=== PATIENT | female | born 1975 | race Hispanic/Latino ===

== ENCOUNTER 2017-08-11 07:28 | Outpatient (CLI) | payer BC | END 2017-08-11 07:29 | disposition home or self-care (01) | LOC: BICULT 07:28 | PROVIDERS: ATTEND Nurse Practitioner Women's Health | DX: R10.2 Pelvic and perineal pain (principal); D25.9 Leiomyoma of uterus, unspecified; N83.292 Other ovarian cyst, left side | CPT/HCPCS: 76856 ==

== ENCOUNTER 2017-10-06 10:02 | Outpatient (CLI) | payer BC | END 2017-10-06 10:03 | disposition home or self-care (01) | LOC: BICMAMMO 10:02 | PROVIDERS: ATTEND Nurse Practitioner Women's Health | DX: Z12.31 Encounter for screening mammogram for malignant neoplasm of breast (principal) | CPT/HCPCS: 77063; 77067 ==

== ENCOUNTER 2018-04-15 15:30 | Inpatient (IN) | payer BC ==
[2018-04-15 16:55] VITALS: BMI 27.7
--- NOTE | 2018-04-16 08:16 | HP ---
SCHEDULED DATE OF SURGERY: 04/19/2018. HISTORY OF PRESENT ILLNESS: Ms. Snowden is a 43-year-old female G3, P3, prior x3 and tubal ligation, who was originally referred from Dr. Tung Valentine. The patient has had a history of chronic pelvic pain and uterine fibroids. She has severe dysmenorrhea on her menstrual cycle and also has feeling of constant menstrual-like cramping throughout the month. She did have an ultrasound that did show multiple small uterine fibroids throughout her uterus with some shadowing, but the myometrium suggesting possible adenomyosis in addition to the uterine fibroids. No adnexal masses were seen. This was performed in December of 2017. PAST MEDICAL HISTORY: Otherwise negative. PAST SURGICAL HISTORY: section x3 and tubal ligation. SOCIAL HISTORY: No excessive alcohol use. Previous smoker but not presently. ALLERGIES: SHE HAS NO KNOWN DRUG ALLERGIES. MEDICATIONS: No current regular medications except non-steroidals as needed. NURSING RESIDENT HISTORY: HPV testing and Pap smear was normal in November 2017. PHYSICAL EXAMINATION: VITAL SIGNS: Her height is 5 feet 2 inches, weight 139 pounds, blood pressure 104/80, pulse 56, respirations 16, BMI 25.4. HEENT: Within normal limits. CHEST: Clear to auscultation. HEART: Regular rate and rhythm. S1 and S2 heart sounds. No murmurs, rubs, or gallops. ABDOMEN: Soft, nondistended. No palpable masses. No hepatosplenomegaly. PELVIC: Vulva and vagina had no lesions. There was no urethral discharge or mass. Normal urethral meatus noted. The vagina had no tenderness. There was no systole, rectocele or abnormal discharge or lesions. Cervix has no normal discharge. It was grossly normal. Uterus is midline, normal size, but tender on examination. Adnexa, no parametrial tenderness or mass. No adnexal tenderness or ovarian masses appreciated. ASSESSMENT: This is a 43-year-old female G3, P3 with 3 C-sections and tubal ligation with chronic pelvic pain and small uterine fibroids on ultrasound. Shadowing of the myometrium suggested a possible adenomyosis along with patient's clinical history. The patient has desired definite surgical therapy. She is scheduled to undergo robotic-assisted total laparoscopic hysterectomy with removal of bilateral fallopian tubes. This is set for 04/19/2018. Risks and benefits of surgery have been discussed in detail. Job ID: [id number]
[2018-04-19] MEDS ORDERED: Famotidine/PF 20 mg/2ml Vial ONE (06:22)
[2018-04-19] MEDS ORDERED: Gabapentin 300 MG CAP ONE (06:22)
[2018-04-19] MEDS ORDERED: CEFAZOLIN 2 GM/50 ML BAG ONE (06:22)
[2018-04-19] MEDS ORDERED: CeleCOXIB 100 MG CAP ONE (06:22)
[2018-04-19] MEDS ORDERED: Bupivacaine HCl 0.5%/Epinephrine 1:200,000/PF 30 ml Vial ONE (06:39)
[2018-04-19] MEDS ORDERED: Midazolam HCl 2 mg/2 ml Vial ONE (07:01)
[2018-04-19] MEDS ORDERED: Fentanyl 250 MCG/5 ML VIAL ONE (07:01)
[2018-04-19] MEDS ORDERED: Fentanyl 100 MCG/2 ML VIAL ONE (08:40)
[2018-04-19] MEDS ORDERED: Promethazine HCl 25 MG/ML VIAL SLOW IVP PRN (09:45)
[2018-04-19] MEDS ORDERED: Ondansetron HCl/PF 4 MG/2 ML Vial IVP PRN (09:45)
[2018-04-19] MEDS ORDERED: Promethazine HCl 25 MG/ML VIAL IM PRN ×2 (09:45→12:10)
[2018-04-19] MEDS ORDERED: traMADol HCl 50 MG TAB PO PRN ×2 (12:10)
[2018-04-19] MEDS ORDERED: Bisacodyl 10 MG SUPP PR PRN (12:10)
[2018-04-19] MEDS ORDERED: Ondansetron PF 4 MG/2 ML Vial IVP PRN (12:10)
[2018-04-19] MEDS ORDERED: diphenhydrAMINE 25 MG CAP PO PRN (12:10)
[2018-04-19] MEDS ORDERED: Morphine 10 MG/ML VIAL SLOW IVP PRN (12:10)
[2018-04-19] MEDS ORDERED: Simethicone Chewable 80 MG TAB PO PRN (12:10)
--- NOTE | 2018-04-19 15:44 | OP ---
DATE OF PROCEDURE: 04/19/2018 PREOPERATIVE DIAGNOSES: 1. 43-year-old female G3, P3, prior x3 with tubal ligation. 2. Chronic pelvic pain. 3. Severe dysmenorrhea. 4. Uterine fibroids. 5. Suspect clinical adenomyosis. POSTOPERATIVE DIAGNOSES: 1. 43-year-old female G3, P3, prior x3 with tubal ligation. 2. Chronic pelvic pain. 3. Severe dysmenorrhea. 4. Uterine fibroids. 5. Suspect clinical adenomyosis. PROCEDURES PERFORMED: Robotic total laparoscopic hysterectomy and bilateral salpingectomy. FUEL AGENT SURGEON: Marlee Eduardo DO ANESTHESIA: General endotracheal. ESTIMATED BLOOD LOSS: 50 mL. COMPLICATIONS: None. ANTIBIOTICS: 2 g Ancef, on-call to the OR. FINDINGS: 1. Normal appearing bilateral fallopian tubes, status post tubal ligation and bilateral ovaries. 2. Adenomyotic appearing uterus. 3. Clear urine present in Coles catheter postprocedure. 4. Bilateral ureteral peristalsis visualized postprocedure. 5. Omental adhesions periumbilical area noted on entry into abdomen, status post lysis of adhesions. COUNTS: Correct x2. DISPOSITION: Recovery room. DESCRIPTION OF PROCEDURE: The patient previously received informed consent in regard to surgery. She was taken back to the operating room, where she received a general endotracheal anesthetic agent without complications. She was placed in dorsal lithotomy position with the use of Ravinder stirrups and prepped and draped in usual sterile fashion. A Coles catheter was placed at this time. A sidearm speculum was placed in the vagina. The anterior lip of the cervix was grasped with single-tooth tenaculum. The uterus was sounded to 10 cm. A size 10 cm NABOR uterine manipulator with 4.0 cm cervical cup was then placed in usual fashion. Tenaculum and speculum were removed. Attention was then turned to the abdomen, where perspective trocar sites were infiltrated with 0.5% Marcaine with epinephrine. A 12 mm supraumbilical incision was made. Veress needle was entered into the abdominal cavity. The abdomen was insufflated after patient's pressure noted to be less than 5 mm. The abdomen was insufflated with 4.5 L of carbon dioxide gas and the patient's pressure was 15. Veress needle was removed and a size 12 mm trocar was placed. The robotic laparoscope was then placed through the trocar sleeve. There was noted to be omental adhesions near the trocar sleeve, which made some of the visualization for the right side port more limited. We were able to directly visualize the placement of the right lower quadrant 8 mm trocar and the left lower quadrant 8 mm trocar under direct visualization. We then got the 8.5 laparoscope, and placed it through the left-sided lateral port and then we were able to incise the omental adhesions in the periumbilical area with Endo Shannon. We also ascertained that there was no evidence of any bowel or no omentum and no evidence of any bowel injury noted. After omental adhesions have been taken down in the right upper quadrant, an 11 mm field research assistant port was placed. We then placed the patient in a more Trendelenburg position and robot was docked in usual fashion. I then proceeded to carry out the surgery from the robotic console side whereas my assistants remained at the bedside. The uterus was elevated from the pelvis. The previously mentioned findings were noted. My field research assistant grasped the fallopian tube on the left side at the fimbria and then this allowed me to bipolar fenestrated cauterize the mesosalpinx of the left tube. This was incised with monopolar scissors. The tube was then removed in the right upper quadrant trocar sleeve. The left utero-ovarian ligament was then isolated, was coagulated and transected. Serial coagulation of the broad ligament hugging close to uterus was carried out to the left round ligament was reached. It was coagulated and transected. This allowed for entry into the anterior leaf of the broad ligament and layering of the vesicouterine peritoneum. The vesicouterine peritoneum was then incised and layered taking down the bladder atraumatically past the cervical vaginal angle margin, which was visualized [QAMARKER] cervical cup. The uterine arteries were then skeletonized in layering technique both anteriorly and posteriorly and this allowed for coagulation of these in the internal cervical os region. The right fallopian tube was then grasped by my field research assistant. The fimbria and again the mesosalpinx was cauterized with bipolar fenestrated cautery and incised removing the right fallopian tube of the right upper quadrant trocar site. The right utero-ovarian ligament again was coagulated and transected and serial coagulation of the broad ligament hugging close to the uterine specimen with a bipolar fenestrated cautery was then carried out. The transection monopolar scissors again to the right round ligament was reached. Again, it was coagulated and transected, the anterior leaf of the broad ligament was entered. The vesicouterine peritoneum again was incised under direct visualization in layering technique, peeling the bladder atraumatically off the cervix past the cervical vaginal margin. Again, the uterine vessels were skeletonized both anteriorly and posteriorly and they were coagulated at the internal cervical os region. Anterior colpotomy was then created starting at the 12 to 3 and 12 to 9 o'clock position with monopolar scissors. Coagulation of the vessels again at the 3 and 9 o'clock position were carried out achieving hemostasis. The posterior colpotomy was then completed from 6 to 9 and 6 to 3 o'clock. The specimen was delivered through the vaginal vault. The monopolar scissors were exchanged for a Micah needle racing car driver. The vaginal cuff was grasped with a Micah needle racing car driver and any areas of ongoing bleeding were made hemostatic with the bipolar fenestrated cautery. My field research assistant then brought in a Stratafix suture through the right upper quadrant field research assistant port. The vaginal cuff was then closed in full-thickness closure starting at the right angle back towards the left angle and then back towards the midline. Good hemostasis and approximation of the cup were noted. The suture and needle were then removed. The pelvis was copiously irrigated and noted to be hemostatic. Bilateral ureteral peristalsis was visualized on both pelvic sidewalls. The Coles catheter was placed and clear urine was draining from the Coles. The omentum was again inspected and from the lysis of adhesions and some areas of oozing were made hemostatic with bipolar fenestrated cautery under direct visualization. Once this was completed, the excess carbon dioxide gas was released from the abdomen after the robot had been undocked. A deep stitch of 0 Vicryl was placed in a [id number] stitch fashion in the umbilical defect. Remainder of trocar sites were closed with 4-0 Monocryl suture and Dermabond. The vagina was checked with a sponge stick and no active bleeding was noted and was appeared to be hemostatic. The patient was awakened from anesthesia and transferred to the recovery room in stable condition. Job ID: [id number]
[2018-04-19] MEDS: Ketorolac Tromethamine 30 MG/ML VIAL IVP SCH ×2 (16:07→16:15)
[2018-04-19] MEDS: Acetaminophen 1,000 MG in Premix Bag 1 BAG IVPB SCH ×2 (16:15→18:56)
[2018-04-19] MEDS: Lactated Ringer's 1,000 ML IV SCH (17:30)
[2018-04-20] MEDS: Acetaminophen 1,000 MG in Premix Bag 1 BAG IVPB SCH ×2 (00:03→05:32)
[2018-04-20] MEDS: Ketorolac Tromethamine 30 MG/ML VIAL IVP SCH ×2 (00:03→05:31)
[2018-04-20] MEDS: Lactated Ringer's 1,000 ML IV SCH (04:08)
[2018-04-20 06:23] LABS: Hemoglobin 10.5 g/dL (12.0-16.0); Mean Corpuscular HGB CONC 32.7 g/dL (32.0-36.0); Mean Corpuscular Hemoglobin 29.1 pg (27.0-31.0); Mean Platelet Volume 6.9 fL (7.4-10.4); Platelet Count 299 thou/uL (130-400); RBC Distribution Width 13.4 % (11.5-14.5); Red Blood Cell (RBC) Count 3.61 mill/uL (4.20-5.40)
[2018-04-20 07:57] VITALS: BP 105/63; TEMP 97.9
[2018-04-20] MEDS ORDERED: Prenatal Vitamin 1 TAB PO SCH (09:00)
[2018-04-24] MEDS ORDERED: Ibuprofen 800 MG TAB PO SCH (21:00)
== END 2018-04-20 10:14 | disposition home or self-care (01) | DRG 743 ==
LOC: SURG A 04-19 06:01 → 3SE 04-19 10:28
PROVIDERS: ADMIT Obstetrics & Gynecology; ATTEND Obstetrics & Gynecology
PROC: 0UT94ZZ Resection of Uterus, Percutaneous Endoscopic Approach (ICD-10-PCS; principal; 2018-04-19)
PROC: 0UT74ZZ Resection of Bilateral Fallopian Tubes, Percutaneous Endoscopic Approach (ICD-10-PCS; 2018-04-19)
PROC: 8E0W4CZ Robotic Assisted Procedure of Trunk Region, Percutaneous Endoscopic Approach (ICD-10-PCS; 2018-04-19)
DX: D25.9 Leiomyoma of uterus, unspecified (principal); N80.0 Endometriosis of uterus; R10.2 Pelvic and perineal pain; N92.0 Excessive and frequent menstruation with regular cycle; N94.6 Dysmenorrhea, unspecified
CPT/HCPCS: 36415; 85027; 88307; J0131; J0670; J1885; J2250; J3010; S0028

== ENCOUNTER 2018-04-15 15:56 | Outpatient (CLI) | payer BC ==
[2018-04-15 17:45] LABS: Mean Corpuscular HGB CONC 33.9 g/dL (32.0-36.0); Mean Corpuscular Hemoglobin 29.9 pg (27.0-31.0); Mean Corpuscular Volume 88.3 fL (78.0-98.0); Mean Platelet Volume 6.5 fL (7.4-10.4); Platelet Count 377 thou/uL (130-400); RBC Distribution Width 13.7 % (11.5-14.5); Red Blood Cell (RBC) Count 4.35 mill/uL (4.20-5.40); White Blood Cell (WBC) Count 7.7 thou/uL (4.8-10.8)
[2018-04-15 18:00] LABS: BHCG - Serum Negative (NEGATIVE); Pregs Control Bar Appear? YES (CONTROL BAR)
[2018-04-15 18:01] LABS: Pregs Control Background? CLEAR/WHITE (CLR/WHITE)
== END 2018-04-15 15:57 | disposition home or self-care (01) ==
LOC: LABBT 15:56
PROVIDERS: ATTEND Obstetrics & Gynecology
DX: Z01.812 Encounter for preprocedural laboratory examination (principal); D25.9 Leiomyoma of uterus, unspecified
CPT/HCPCS: 84703; 85027; 86850; 86900; 86901

== ENCOUNTER 2018-09-24 08:16 | Outpatient (CLI) | payer BC ==
--- NOTE | 2018-09-24 08:33 | MMO ---
Bilateral MAMMO Bilat Screen [facility]. CLINICAL HISTORY: Patient is 43 years old and is seen for screening. The patient has the following family history of breast cancer: aunt. The patient has no personal history of cancer. VIEWS: The views performed were: bilateral craniocaudal with tomosynthesis and bilateral mediolateral oblique with tomosynthesis. FILMS COMPARED: The present examination has been compared to prior imaging studies performed at [facility] on 10/02/2016 and 10/06/2017. MAMMOGRAM FINDINGS: There are scattered fibroglandular densities. There are no suspicious masses, suspicious calcifications, or new areas of architectural distortion. IMPRESSION: THERE IS NO MAMMOGRAPHIC EVIDENCE OF MALIGNANCY. A ROUTINE FOLLOW-UP MAMMOGRAM IN 1 YEAR IS RECOMMENDED. THE RESULTS OF THIS EXAM WERE SENT TO THE PATIENT. ACR BI-RADS Category 1 - Negative MAMMOGRAPHY NOTE: 1. A negative mammogram report should not delay a biopsy if a dominant of clinically suspicious mass is present. 2. Approximately 10% to 15% of breast cancers are not detected by mammography. 3. Adenosis and dense breasts may obscure an underlying neoplasm.
== END 2018-09-24 08:17 | disposition home or self-care (01) ==
LOC: BICMAMMO 08:16
PROVIDERS: ATTEND Family Medicine
DX: Z12.31 Encounter for screening mammogram for malignant neoplasm of breast (principal); Z80.3 Family history of malignant neoplasm of breast
CPT/HCPCS: 77063; 77067

== ENCOUNTER 2018-11-12 15:33 | Outpatient (CLI) | payer BC ==
--- NOTE | 2018-11-12 15:58 | RAD ---
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 COMPARISON: None. FINDINGS: There is no acute fracture or malalignment. Small plantar calcaneal spur. Mild midfoot degenerative c hange. IMPRESSION: No acute osseous abnormality. POS: TPC
--- NOTE | 2018-11-12 15:59 | RAD ---
Exam: Left foot 3 views: HISTORY: Lesion of plantar nerve, bilateral lower feet. Foot pain COMPARISON: None FINDINGS: No evidence for fracture, dislocation, or other significant acute osseous abnormality. IMPRESSION: No significant acute process.
== END 2018-11-12 15:34 | disposition home or self-care (01) ==
LOC: BICRAD 15:33
PROVIDERS: ATTEND Internal Medicine Rheumatology
DX: G57.63 Lesion of plantar nerve, bilateral lower limbs (principal)

== ENCOUNTER 2019-04-06 14:59 | Outpatient (CLI) | payer BC ==
--- NOTE | 2019-04-06 15:53 | ULT ---
EXAM: Right lower extremity venous ultrasound HISTORY: Right lower extremity pain and edema COMPARISON: None TECHNIQUE: Multiplanar grayscale and color Doppler images were obtained in a right lower extremity ve nous ultrasound. Spectral analysis of the Doppler waveforms were performed. FINDINGS: The common femoral vein, profunda femoral vein, superficial femoral vein, and popliteal vei n are normal in appearance without visible thrombus. These vessels demonstrate normal compression, flow, and augmentation. The posterior tibial vein and greater saphenous vein are patent without evidence of thrombus. Promine nt vessels are seen in the lateral right leg below the knee. IMPRESSION: No evidence of DVT.
== END 2019-04-06 15:00 | disposition home or self-care (01) ==
LOC: BICULT 14:59
PROVIDERS: ATTEND Internal Medicine Rheumatology
DX: M79.89 Other specified soft tissue disorders (principal)

== ENCOUNTER 2020-10-09 11:22 | Outpatient (CLI) | payer BC | END 2020-10-09 11:23 | disposition home or self-care (01) | LOC: BICMAMMO 11:22 | PROVIDERS: ATTEND Family Medicine | DX: Z12.31 Encounter for screening mammogram for malignant neoplasm of breast (principal) | CPT/HCPCS: 77063; 77067 ==

== ENCOUNTER 2021-01-31 08:52 | Outpatient (CLI) | payer BC | END 2021-01-31 08:53 | disposition home or self-care (01) | LOC: BICRAD 08:52 | PROVIDERS: ATTEND Internal Medicine Rheumatology | DX: M25.561 Pain in right knee (principal) ==

== ENCOUNTER 2021-05-06 12:48 | Observation (INO) | payer BC ==
[2021-05-06 13:34] LABS: #Eosinphils 0.1 thou/uL (0.0-0.7); #Lymphocytes 1.7 thou/uL (1.20-3.40); #Monocytes 0.3 thou/uL (0.11-0.59); #Neutrophils 2.3 thou/uL (1.40-6.50); %Basophils 0.5 % (0.0-1.0); %Eosinophils 1.3 % (0.0-10.0); %Lymphocytes 38.9 % (21.0-51.0); %Monocytes 6.5 % (0.0-10.0); %Neutrophils 52.8 % (42.0-75.0); Hemoglobin 14.1 g/dL (12.0-16.0); Mean Corpuscular Hemoglobin 32.4 pg (27.0-31.0); Mean Corpuscular Volume 92.6 fL (78.0-98.0); Mean Platelet Volume 6.4 fL (7.4-10.4); Platelet Count 239 thou/uL (130-400); RBC Distribution Width 11.2 % (11.5-14.5); Red Blood Cell (RBC) Count 4.34 mill/uL (4.20-5.40); White Blood Cell (WBC) Count 4.3 thou/uL (4.8-10.8)
[2021-05-06 13:57] LABS: ALT (SGPT) 15 U/L (8-55); AST (SGOT) 16 U/L (5-34); Albumin 4.1 g/dL (3.5-5.0); Alkaline Phosphatase 70 U/L (40-110); Anion Gap 12 mmol/L (10-20); BUN (Urea Nitrogen) 9 mg/dL (7.0-18.7); Bilirubin, Total 0.2 mg/dL (0.2-1.2); Calc. Creatinine Clearance 0 mL/min (70-130); Calcium 9.9 mg/dL (7.8-10.44); Carbon Dioxide 25 mmol/L (22-29); Chloride 107 mmol/L (98-107); Globulin 3.5 g/dL (2.4-3.5); Glucose 125 mg/dL (70-105); Potassium 3.6 mmol/L (3.5-5.1); Protein, Total 7.6 g/dL (6.0-8.3); Sodium 140 mmol/L (136-145)
[2021-05-06] MEDS ORDERED: Aspirin Chewable 81 MG TAB ONE (16:09)
[2021-05-06] MEDS ORDERED: Calcium Chloride 1 GM/10 ML Abboject SYRINGE ONE (18:34)
[2021-05-06] MEDS ORDERED: Senokot S 8.6-50 MG TAB PO PRN (18:59)
[2021-05-06] MEDS ORDERED: Bisacodyl 5 MG TAB PO PRN (18:59)
[2021-05-06] MEDS ORDERED: Calcium Carbonate 500 MG ChewTAB PO PRN (18:59)
[2021-05-06] MEDS ORDERED: Ondansetron PF 4 MG/2 ML Vial IVP PRN (18:59)
[2021-05-06] MEDS ORDERED: Acetaminophen 325 MG TAB PO PRN (18:59)
[2021-05-06] MEDS ORDERED: HYDROcodone/Acetaminophen 7.5/325 mg Tablet PO PRN (18:59)
[2021-05-06] MEDS ORDERED: HYDROcodone/Acetaminophen 5/325 mg Tablet PO PRN (18:59)
[2021-05-06] MEDS ORDERED: Sodium Chloride 0.9% 1,000 ML IV SCH (19:00)
[2021-05-06] MEDS ORDERED: Melatonin 3 MG TAB PO PRN (19:06)
[2021-05-06] MEDS ORDERED: Famotidine/PF 20 mg/2ml Vial ONE (22:13)
[2021-05-06] MEDS: Famotidine/PF 20 mg/2ml Vial SLOW IVP SCH (22:17)
[2021-05-07 04:21] LABS: SARS-CoV-2 PCR by NAA Not Detected (NotDetected)
[2021-05-07 05:10] VITALS: BMI 24.4
[2021-05-07 06:33] LABS: #Basophils 0.1 thou/uL (0.0-0.2); #Eosinphils 0.1 thou/uL (0.0-0.7); #Lymphocytes 1.8 thou/uL (1.20-3.40); #Monocytes 0.3 thou/uL (0.11-0.59); #Neutrophils 1.9 thou/uL (1.40-6.50); %Basophils 1.7 % (0.0-1.0); %Eosinophils 1.4 % (0.0-10.0); %Lymphocytes 43.1 % (21.0-51.0); %Monocytes 7.9 % (0.0-10.0); Hemoglobin 13.3 g/dL (12.0-16.0); Mean Corpuscular Hemoglobin 31.9 pg (27.0-31.0); Mean Corpuscular Volume 93.6 fL (78.0-98.0); Mean Platelet Volume 6.2 fL (7.4-10.4); Platelet Count 237 thou/uL (130-400); RBC Distribution Width 11.2 % (11.5-14.5); Red Blood Cell (RBC) Count 4.17 mill/uL (4.20-5.40); White Blood Cell (WBC) Count 4.2 thou/uL (4.8-10.8)
[2021-05-07 06:53] LABS: ALT (SGPT) 15 U/L (8-55); AST (SGOT) 19 U/L (5-34); Albumin 3.7 g/dL (3.5-5.0); Alkaline Phosphatase 58 U/L (40-110); Anion Gap 10 mmol/L (10-20); BUN (Urea Nitrogen) 12 mg/dL (7.0-18.7); Bilirubin, Total 0.3 mg/dL (0.2-1.2); Calc. Creatinine Clearance 91 mL/min (70-130); Calcium 9.5 mg/dL (7.8-10.44); Carbon Dioxide 26 mmol/L (22-29); Cardiac Risk 5.9 (Less than 4.5); Chloride 108 mmol/L (98-107); Cholesterol 212 mg/dl (< 200 Desired); Globulin 3.3 g/dL (2.4-3.5); Glucose 86 mg/dL (70-105); HDL Cholesterol 36 mg/dL (>60 Neg Risk); LDL Cholesterol, Calculated 105 mg/dL; Potassium 3.8 mmol/L (3.5-5.1); Sodium 140 mmol/L (136-145); Triglycerides 354 mg/dL (Less than 150)
[2021-05-07 07:50] LABS: Hemoglobin A1c 5.8 % (4.0-6.0)
[2021-05-07] MEDS: Famotidine/PF 20 mg/2ml Vial SLOW IVP SCH (08:22)
[2021-05-07] MEDS ORDERED: Aspirin Chewable 81 MG TAB PO SCH (09:00)
[2021-05-07] MEDS ORDERED: predniSONE 20 MG TAB PO SCH (11:45)
[2021-05-07] MEDS ORDERED: valACYclovir 500 MG TAB PO SCH ×2 (11:45→21:00)
[2021-05-07 12:34] VITALS: TEMP 98.6
[2021-05-07 13:49] VITALS: BP 156/87
[2021-05-07] MEDS ORDERED: Rosuvastatin 20 MG TAB PO SCH (21:00)
[2021-05-08] MEDS ORDERED: predniSONE 20 MG TAB PO SCH (08:00)
[2021-05-10] MEDS ORDERED: FLU VACC QS2021-22(6MOS UP)/PF 60 MCG/0.5 ML SYRINGE IM ONE (09:00)
== END 2021-05-07 14:30 | disposition home or self-care (01) ==
LOC: ERS 12:48 → ERHOLD 16:23 → NEURO 05-07 04:41
PROVIDERS: ADMIT Family Medicine; ATTEND Internal Medicine
DX: G51.0 Bell's palsy (principal); E78.5 Hyperlipidemia, unspecified; M79.7 Fibromyalgia; I65.23 Occlusion and stenosis of bilateral carotid arteries; Z20.822 Contact with and (suspected) exposure to COVID-19
CPT/HCPCS: 36415; 70450; 70551; 70553; 80053; 80061; 83036; 84484; 85025; 93005; 93880; 96374; 96376; G0378; J7050; J7512; S0028; U0003; U0005

== ENCOUNTER 2021-10-10 10:27 | Outpatient (CLI) | payer BC | END 2021-10-10 10:28 | disposition home or self-care (01) | LOC: BICMAMMO 10:27 | PROVIDERS: ATTEND Family Medicine | DX: Z12.31 Encounter for screening mammogram for malignant neoplasm of breast (principal); N64.89 Other specified disorders of breast; Z80.3 Family history of malignant neoplasm of breast | CPT/HCPCS: 77063; 77067 ==

== ENCOUNTER 2021-10-16 08:56 | Outpatient (CLI) | payer BC | END 2021-10-16 08:57 | disposition home or self-care (01) | LOC: BICMAMMO 08:56 | PROVIDERS: ATTEND Family Medicine | DX: R92.1 Mammographic calcification found on diagnostic imaging of breast (principal) | CPT/HCPCS: G0279 ==

== ENCOUNTER 2022-12-31 08:56 | Outpatient (CLI) | payer BC | END 2022-12-31 08:57 | disposition home or self-care (01) | LOC: BICMAMMO 08:56 | PROVIDERS: ATTEND Family Medicine | DX: Z12.31 Encounter for screening mammogram for malignant neoplasm of breast (principal); Z80.3 Family history of malignant neoplasm of breast | CPT/HCPCS: 77063; 77067 ==